=== PATIENT | female | born 1950 | race Caucasian/White ===

== ENCOUNTER → 2016-05-10 | Outpatient (CLI) | payer OTHER, BC ==
[~2016-05-10] MED LIST: ASPIR-LOW81 MG PO; CALCIUM CITRAT1 EAC3 PO; CITRACAL D + H1 EACH PO; EVISTA60 MG PO; Ecotrin PO; FISH OIL CONC1 EACH PO; FORTICAL3.7 ML ALT NARES; LEXAPRO10 MG PO; LEXAPRO20 MG PO; LEXAPRO5 MG PO; MIRAPEX0.5 MG PO; Mirapex PO; NEXIUM20 MG PO; NITROSTAT0.4 MG SL; STOOL SOFTENER100 M1 PO; SYNTHROID25 MCG; SYNTHROID50 MCG PO; THERA-D2000 UNIT PO; VERAPAMIL ER120 MG PO; VERAPAMIL HCL120 M1 PO
== END | disposition home or self-care (01) ==
LOC: NUC 12:27
DX: K82.9 Disease of gallbladder, unspecified (principal)
CPT/HCPCS: 78227; A9537; J2805